=== PATIENT | male | born 1990 | race Caucasian/White ===

== ENCOUNTER 2020-12-06 05:09 | Inpatient (IN) | payer OTHER ==
[~2020-12-06] VITALS: Ht 190.5 cm; Wt 91.4 kg
[2020-12-06] VITALS (8 sets, daily range): BP systolic 106–153; BP diastolic 48–80
[2020-12-06 05:46] LABS: ABSOLUTE NEUTROPHILS 3.8 thou/uL (1.4-8.2); BASOPHILS 0.5 % (0.0-2.0); EOSINOPHILS 0.1 % (0.0-3.0); HEMATOCRIT 43.4 % (42.0-52.0); HEMOGLOBIN 14.8 gm/dL (14.0-18.0); LYMPHOCYTES 13.9 % (24.0-44.0); MCH 29.7 pg (26.0-34.0); MCHC 34.1 g/dL (28.0-37.0); MCV 87.1 fL (80.0-100.0); MONOCYTES 9.4 % (1.0-8.0); PLATELET COUNT 147 thou/uL (150-400); POLYS 76.1 % (36.0-66.0); RBC 4.99 mil/uL (4.50-6.00); RDW 12.6 % (10.5-14.5)
[2020-12-06 06:00] LABS: CALCIUM 8.7 mg/dL (8.5-10.1); CREATININE 1.3 mg/dL (0.7-1.3); POTASSIUM 3.8 mmol/L (3.5-5.1)
[2020-12-06 06:10] LABS: ALBUMIN 3.4 g/dL (3.4-5.0); TOTAL BILIRUBIN 0.5 mg/dL (0.2-1.0); TOTAL PROTEIN 7.6 g/dL (6.4-8.2)
[2020-12-06 07:28] LABS: URINE BILIRUBIN NEGATIVE (Negative); URINE BLOOD NEGATIVE (Negative); URINE CLARITY CLEAR; URINE COLOR YELLOW; URINE GLUCOSE-RANDOM* NEGATIVE (Negative); URINE KETONES NEGATIVE (Negative); URINE LEUKOCYTES-REFLEX NEGATIVE (Negative); URINE NITRITE-REFLEX NEGATIVE (Negative); URINE PROTEIN (DIPSTICK) NEGATIVE (Negative); URINE SPECIFIC GRAVITY <= 1.005 (1.005-1.035); URINE UROBILINOGEN 0.2 E.U./dl (0.2-1.0)
--- NOTE | 2020-12-06 08:14 | NUR ---
VERBAL CONSENT OBTAINED FROM PT PRIOR TO SPEAKING WITH FATHER-SARAH HOGAN. UPDATE ON ADMISSION AND PLAN OF CARE GIVEN. PT AWARE.
[2020-12-06] MEDS ORDERED: DOXYCYCLINE 10100 MG PO (15:02)
--- NOTE | 2020-12-06 18:48 | NUR ---
RN ADMITTED PT FROM ER FOR FEVER ( POSITIVE SALMINELLA ) AT 0900AM, PT IS A&OX3, PT HAS LIGH ANXIETY, PT 'S BP ,HR AND O2SAT ARE STABLE, PT HAS MEDICATIONS FOR FEVER ( TEMP 99.9F TO 102.6F) AND PAIN ( GEN), PT IS CONTINUING IV ABX AND IV FLUID, PT DENIES SOB AND N/V, PT'S DIARRHEA HAS IMPROVED.
[2020-12-07 02:48] VITALS: BP 118/81
[2020-12-07 05:16] LABS: ABSOLUTE NEUTROPHILS 5.8 thou/uL (1.4-8.2); BASOPHILS 0.3 % (0.0-2.0); HEMATOCRIT 36.5 % (42.0-52.0); LYMPHOCYTES 15.8 % (24.0-44.0); MCH 29.9 pg (26.0-34.0); MCHC 34.3 g/dL (28.0-37.0); MCV 87.3 fL (80.0-100.0); MONOCYTES 9.7 % (1.0-8.0); PLATELET COUNT 144 thou/uL (150-400); POLYS 74.2 % (36.0-66.0); RBC 4.18 mil/uL (4.50-6.00); RDW 12.9 % (10.5-14.5); WBC 7.9 thou/uL (4.0-11.0)
[2020-12-07 05:32] LABS: ALBUMIN 2.8 g/dL (3.4-5.0); CALCIUM 7.9 mg/dL (8.5-10.1); CREATININE 1.2 mg/dL (0.7-1.3); HEMOGLOBIN 12.5 gm/dL (14.0-18.0); POTASSIUM 3.7 mmol/L (3.5-5.1); TOTAL BILIRUBIN 0.3 mg/dL (0.2-1.0); TOTAL PROTEIN 6.4 g/dL (6.4-8.2)
--- NOTE | 2020-12-07 06:12 | NUR ---
Pt. slept interittently during the night. Positive blood culture called to [employer] retention specialist. Max temp of 101 axillary. Tylenol given with some relief. Medicated for generalized pain with some relief.
[2020-12-07 06:53] VITALS: BP 133/59
[2020-12-07 15:10] VITALS: BP 136/71
--- NOTE | 2020-12-07 15:43 | NUR ---
INITIAL ASSESSMENT: MILANA reviewed chart and spoke with nursing and attending physician. Pt was admitted from home due to fever. Pt remains febrile and is on IV abx. Pt had negative COVID test on 12/06. Pt with hx of COVID in September. Pt recently traveled to the [place] for vacation. Pt listed as not having health insurance. MILANA met with pt and his at bedside. Introduced role of SW. Pt is alert/orientated x 4. Pt reports he lives at home with his . Pt was independent with ADLs prior to admission. No use of DME. Pt states his PCP is Dr. Quincy Ulloa. Pt states that he does have private insurance, which is not through his employer. Pt asked for information regarding the costs of his hospital stay as private pay. MILANA contacted the billing office to request pt to be notified of private pay costs of services. Plan is for pt to discharge home when medically stable. MILANA is following to assist as needed with discharge planning.
[2020-12-07 19:18] VITALS: BP 140/63
[2020-12-08 04:41] VITALS: BP 126/73
--- NOTE | 2020-12-08 05:04 | NUR ---
Pt. slept fair during the night. Medicated for back pain with good relief. Max temp 102.3 9 axillary last night , tylenol given. Reported one loose bm this shift , moderate amount and stated it is now brown instead of green.
[2020-12-08 05:58] LABS: ABSOLUTE NEUTROPHILS 9.7 thou/uL (1.4-8.2); BASOPHILS 0.5 % (0.0-2.0); EOSINOPHILS 0.1 % (0.0-3.0); HEMOGLOBIN 12.2 gm/dL (14.0-18.0); LYMPHOCYTES 10.4 % (24.0-44.0); MCH 29.7 pg (26.0-34.0); MCHC 33.9 g/dL (28.0-37.0); MCV 87.5 fL (80.0-100.0); MONOCYTES 7.6 % (1.0-8.0); PLATELET COUNT 163 thou/uL (150-400); POLYS 81.4 % (36.0-66.0); RBC 4.12 mil/uL (4.50-6.00); RDW 13.3 % (10.5-14.5); WBC 11.9 thou/uL (4.0-11.0)
[2020-12-08 06:13] LABS: ALBUMIN 2.6 g/dL (3.4-5.0); CALCIUM 7.8 mg/dL (8.5-10.1); CREATININE 1.1 mg/dL (0.7-1.3); POTASSIUM 3.5 mmol/L (3.5-5.1); TOTAL BILIRUBIN 0.6 mg/dL (0.2-1.0); TOTAL PROTEIN 6.5 g/dL (6.4-8.2)
[2020-12-08 07:08] VITALS: BP 131/75
--- NOTE | 2020-12-08 12:58 | NUR ---
SW reviewed chart and spoke with nursing and attending physician. Pt remains febrile and is on IV abx. Discharge home is anticipated for tomorrow. MILANA discussed case with business office regarding pt being billed privately for hospital services, instead of having insurance billed for services. Business office repesentative will meet with pt to discuss private pay rates for services. Plan is for pt to discharge home when medically stable. MILANA is following to assist as needed with discharge planning.
[2020-12-08 15:09] VITALS: BP 123/72; BP 137/61
--- NOTE | 2020-12-08 18:22 | NUR ---
ASSUMED PATIENT CARE AT 0700. A/O X4. FEBRILE. ANXIOUS. AMBULATED IN ROM AND HALLWAY. SLOWLY TOWARDS POC GOALS.
[2020-12-08 19:03] VITALS: BP 130/69
--- NOTE | 2020-12-08 23:31 | NUR ---
PT SITTING UP IN BED, TALKING WITH . PT REPORTING CENTER CHEST DISCOMFORT, NOT RADIATING, PT NOT EXHIBITING ANY DISTRESS, VS WNL. PT DISCUSSED HOW EARLIER [facility] DID NOT PROVIDE RELIEF. PROVIDER CALLED, EKG OBTAINED AND CALLED TO PROVIDER, GI COCKTAIL PROVIDED. PT ENCOURAGED TO DISTRACT SELF WITH AMBULATION AND [employer]. PT REQUESTING FLUIDS OFTEN.
[2020-12-09 04:30] VITALS: BP 129/85
--- NOTE | 2020-12-09 04:40 | NUR ---
PT HAS HAD NO FURTHER COMPLAINTS OF CHEST DISCOMFORT BUT REPORTED TO AIDE THAT HE STILL DOES NOT FEEL RIGHT AND IS CONTINUING WITH A COUGH. PT HAD AZAM VALDEZ PROVIDED.
--- NOTE | 2020-12-09 07:13 | EKG ---
[place] [address] [facility] [place] [address] ELECTROCARDIOGRAM REPORT Name: ANNA MARIE HOGAN Room #: 349-I ADM IN M.R.#: [id number] Admission: 12/06/20 Attend Phys: Margaret Schulte MD Discharge: Date of : 89 Report #: [id number] [facility] Test Date: 2020-12-08 Test Time: 19:52:07 Pat Name: ANNA MARIE HOGAN Department: Room: 349 I Gender: M Shipping And Receiving: ZINA : 1990 Requested By: Abbey Renae Order Number: [id number] MD: Austin Aquino Measurements Intervals Griffin Rate: 90 P: 56 CT: 142 QRS: 57 QRSD: 82 T: 7 QT: 333 QTc: 408 Interpretive Statements Sinus rhythm Probable left atrial enlargement Probable anteroseptal infarct, old Baseline wander in lead(s) V2 No previous ECG available for comparison Electronically Signed On 12-09-2020 7:13:11 CDT by Austin Aquino [email or web address] <ELECTRONICALLY SIGNED> By: Austin Aquino MD, [facility] 12/09/20712 51 51 Austin Aquino MD, FACC /EPI
[2020-12-09 07:55] VITALS: BP 155/75
[2020-12-09] MEDS ORDERED: TYLENOL 8 HOUR650 MG PO (11:30)
[2020-12-09] MEDS ORDERED: LEVOFLOXACIN750 MG PO (11:30)
[2020-12-09] MEDS ORDERED: CULTURELLE KID1 EAC1 PO (11:32)
[2020-12-09 12:06] VITALS: BP 155/75
--- NOTE | 2020-12-09 13:10 | NUR ---
progressing towards poc goals. dc to home.
--- NOTE | 2020-12-09 13:27 | NUR ---
DISCHARGE NOTE: MILANA reviewed chart and spoke with nursing and attending physician. Pt is medically stable for discharge home today. Discharge orders/summary finalized. Pt discharged home earlier today. No discharge needs identified. Case closed.
== END 2020-12-09 13:11 | disposition home or self-care (01) | DRG 872 ==
LOC: ER 05:09 → EROBS 08:11 → 3W 08:51
PROVIDERS: Emergency Medicine; Specialist; ADMIT Hospitalist; ATTEND Hospitalist
DX: A41.9 Sepsis, unspecified organism (principal); E87.1 Hypo-osmolality and hyponatremia; A02.0 Salmonella enteritis; E87.8 Other disorders of electrolyte and fluid balance, not elsewhere classified; R74.01 Elevation of levels of liver transaminase levels; E86.0 Dehydration; K75.9 Inflammatory liver disease, unspecified; Z79.899 Other long term (current) drug therapy; Z20.822 Contact with and (suspected) exposure to COVID-19
CPT/HCPCS: 10879